=== PATIENT | male | born 1975 | race American Indian/Alaskan Native ===

== ENCOUNTER 2017-12-23 20:58 | Emergency (ER) | payer SELFPAY ==
[2017-12-23] MEDS ORDERED: MOTRIN PO ONE (21:25)
[2017-12-24] MEDS ORDERED: TYLENOL #3 PO ONE (03:15)
--- NOTE | 2017-12-24 03:15 | Emergency Department Report ---
ED ENT HPI - General Chief complaint: Dental/Oral Stated complaint: TOOTHACHE Time Seen by Provider: 12/24/17 02:53 Source: patient Mode of arrival: Ambulatory Limitations: No Limitations - History of Present Illness Initial comments: 42-year-old -[place] male comes in for 4 days history of a toothache on the right side. Patient reports that he knows that he has poor dental care. Patient has taken nothing for pain. Patient reports he does not have a dentist. Patient reports no known drug allergies currently has no past medical history takes no medications on a daily basis. MD complaint: tooth pain, sore throat -: days(s) (4) Location: tooth # (32) Severity: severe Severity scale (0 -10): 10 Quality: constant Improves with: none Worsens with: eating Context- Dental: poor dental care Associated Symptoms: gum swelling, toothache - Related Data Previous Rx's Medication Instructions Recorded Last Taken Type Ibuprofen [Motrin 600 MG tab] 600 mg PO Q8H PRN #30 tablet 12/24/17 Unknown Rx Penicillin Vk [Veetids TAB] 250 mg PO QID #40 tablet 12/24/17 Unknown Rx traMADol [Ultram 50 MG tab] 50 mg PO Q6HR PRN #12 tablet 12/24/17 Unknown Rx Allergies Allergy/AdvReac Type Severity Reaction Status Date / Time No Known Allergies Allergy Unverified 12/23/17 21:21 ED Dental HPI - General Chief complaint: Dental/Oral Stated complaint: TOOTHACHE Time Seen by Provider: 12/24/17 02:53 Source: patient Mode of arrival: Ambulatory Limitations: No Limitations - Related Data Previous Rx's Medication Instructions Recorded Last Taken Type Ibuprofen [Motrin 600 MG tab] 600 mg PO Q8H PRN #30 tablet 12/24/17 Unknown Rx Penicillin Vk [Veetids TAB] 250 mg PO QID #40 tablet 12/24/17 Unknown Rx traMADol [Ultram 50 MG tab] 50 mg PO Q6HR PRN #12 tablet 12/24/17 Unknown Rx Allergies Allergy/AdvReac Type Severity Reaction Status Date / Time No Known Allergies Allergy Unverified 12/23/17 21:21 ED Review of Systems ROS: Stated complaint: TOOTHACHE Other details as noted in HPI ENT: throat pain, dental pain ED Past Medical Hx - Past Medical History Previous Medical History?: No - Surgical History Past Surgical History?: Yes Additional Surgical History: B/L foot - Social History Smoking Status: Current Every Day Smoker Substance Use Type: None - Medications Home Medications: Home Medications Medication Instructions Recorded Confirmed Last Taken Type Ibuprofen [Motrin 600 MG tab] 600 mg PO Q8H PRN #30 tablet 12/24/17 Unknown Rx Penicillin Vk [Veetids TAB] 250 mg PO QID #40 tablet 12/24/17 Unknown Rx traMADol [Ultram 50 MG tab] 50 mg PO Q6HR PRN #12 tablet 12/24/17 Unknown Rx ED Physical Exam - General Limitations: No Limitations General appearance: alert, in no apparent distress - Head Head exam: Present: atraumatic, normocephalic - Expanded ENT Exam Expanded Teeth exam: Present: dental caries, dental tenderness # (32), gingival enlargement - Neck Neck exam: Present: tenderness, lymphadenopathy ED Course Vital Signs 12/23/17 21:14 Temperature 99.1 F Pulse Rate 76 Respiratory 18 Rate Blood Pressure 144/93 O2 Sat by Pulse 99 Oximetry ED Medical Decision Making - Medical Decision Making Patient has been evaluated by this provider in fast track. Ibuprofen and Tylenol No. 3 have been given for pain management. Patient will be discharged on penicillin V and tramadol for pain. Patient needs to follow-up with dentist. Critical care attestation.: If time is entered above; I have spent that time in minutes in the direct care of this critically ill patient, excluding procedure time. ED Disposition Clinical Impression: Toothache Disposition: [id number] TO HOME OR SELFCARE Is pt being admited?: No Does the pt Need Aspirin: No Condition: Stable Instructions: Toothache (ED), Dental Abscess (ED), Dental Caries (ED) Additional Instructions: Complete antibiotics as prescribed. Pain medication as needed. Follow-up with the dentist in the next 7-10 days. Prescriptions: Ibuprofen [Motrin 600 MG tab] 600 mg PO Q8H PRN #30 tablet PRN Reason: Pain Penicillin Vk [Veetids TAB] 250 mg PO QID #40 tablet traMADol [Ultram 50 MG tab] 50 mg PO Q6HR PRN #12 tablet PRN Reason: Pain Referrals: PRIMARY CARE, [Primary Care Provider] - 3-5 Days [facility] [Outside] - 3-[address] [facility] [Outside] - 3-5 Days [facility] [Provider Group] - 3-5 Days Forms: Work/School Release Form(ED)
[2017-12-24 04:03] VITALS: BP 142/88
== END 2017-12-24 04:01 | disposition home or self-care (01) ==
LOC: ED 20:58
DX: K08.89 Other specified disorders of teeth and supporting structures (principal); R07.0 Pain in throat; F17.200 Nicotine dependence, unspecified, uncomplicated
CPT/HCPCS: 87116; 87430; 99283